=== PATIENT | male | born 1945 | race American Indian/Alaskan Native ===

== ENCOUNTER 2018-01-23 09:19 | Emergency (ER) | payer MEDICARE ==
[2018-01-23 09:40] VITALS: BP 174/71; PULSE 55; RESP 14; TEMP 97.7; O2SAT 97
--- NOTE | 2018-01-23 11:32 | C.PDOC ---
History Of Present Illness 72 y/o male presents to the ED complaining of occasional sharp left hip pain for 1 day. Pain is positionally reproducible, and radiates from the left lateral hip into the left groin. Patient states he walks 15-20 miles per day to keep active. He denies any numbness, tingling, focal weakness, trauma or fall. Time Seen by Provider: 01/23/18 09:49 Chief Complaint (Nursing): Back Pain History Per: Patient History/Exam Limitations: no limitations Onset/Duration Of Symptoms: Days Current Symptoms Are (Timing): Still Present Past Medical History Reviewed: Historical Data, Nursing Documentation, Vital Signs Vital Signs: Last Vital Signs Temp 97.7 F 01/23/18 09:37 Pulse 55 L 01/23/18 09:37 Resp 14 01/23/18 09:37 BP 174/71 H 01/23/18 09:37 Pulse Ox 97 01/23/18 12:05 - Medical History PMH: No Chronic Diseases Surgical History: No Surg Hx Family History: States: No Known Family Hx - Social History Hx Alcohol Use: Yes Hx Substance Use: No Review Of Systems Except As Marked, All Systems Reviewed And Found Negative. Cardiovascular: Negative for: Chest Pain Respiratory: Negative for: Shortness of Breath Musculoskeletal: Positive for: Leg Pain (left hip pain). Negative for: Other ( calf pain/swelling) Skin: Negative for: Rash Neurological: Negative for: Weakness, Numbness, Incoordination Physical Exam - Physical Exam Appears: Non-toxic, No Acute Distress, Other (Elderly white male) Skin: Normal Color, Warm, Dry Head: Atraumatic, Normacephalic Eye(s): bilateral: Normal Inspection Oral Mucosa: Moist Neck: Normal ROM Chest: Symmetrical Cardiovascular: Rhythm Regular, No Murmur Respiratory: Normal Breath Sounds, No Accessory Muscle Use Gastrointestinal/Abdominal: Soft, No Tenderness, No Distention Back: No Vertebral Tenderness, No Paraspinal Tenderness Extremity: No Tenderness, No Deformity, No Swelling, Other (Patient reports minor pain to the left hip with rotation of leg) Pulses: Left Dorsalis Pedis: Normal, Right Dorsalis Pedis: Normal Neurological/Psych: Oriented x3, Normal Speech ED Course And Treatment O2 Sat by Pulse Oximetry: 97 (RA) Pulse Ox Interpretation: Normal Medical Decision Making Medical Decision Making: Initial Plan: --Motrin 600 mg PO --X-ray LS spine --X-ray left hip/pelvis X-rays, viewed by me, show no acute fracture or bony abnormality. 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 [Outside] [facility] [Outside] [facility] [Outside] Marco Couch III, MD [Staff Provider] - Disposition: HOME/ ROUTINE Disposition Time: 11:32 Condition: GOOD Additional Instructions: continue motrin/advil 400-600 every 6 hours as needed Pepcid 20 mg @ night to help prevent stomach irritation from the Motrin/Advil Modified walking as able Follow-up with Dr. Couch- [facility]- or the Orthopedics Doctor of your choice. Call to make an appointment. Outpatient Family Practice Clinic as needed. Instructions: Arthritis and Exercise, Hip Pain in Older People Forms: [employer] (Turkmen) - Clinical Impression Clinical Impression: Pain in left hip - Scribe Statement The provider has reviewed the documentation as recorded by the Kiana Bah Provider Attestation: All medical record entries made by the Vanessaibgrazyna were at my direction and personally dictated by me. I have reviewed the chart and agree that the record accurately reflects my personal performance of the history, physical exam, medical decision making, and the department course for this patient. I have also personally directed, reviewed, and agree with the discharge instructions and disposition.
--- NOTE | 2018-01-23 13:28 | RAD ---
PROCEDURE: Left Hip X-ray Radiographs. HISTORY: L hip pain COMPARISON: None. FINDINGS: BONES: No acute fracture. JOINTS: Bilateral hip joint space narrowing. SOFT TISSUES: Normal. OTHER FINDINGS: None. IMPRESSION: No demonstrated fracture or dislocation. Bilateral hip degenerative changes.
--- NOTE | 2018-01-23 13:31 | RAD ---
Date of service: 01/23/2018 PROCEDURE: Radiographs of the Lumbar Spine. HISTORY: L lower back/hip pain COMPARISON: No prior. FINDINGS: BONES: Normal alignment. No listhesis. Mild age-indeterminate depression of the L3 superior endplate. DISC SPACES: Multilevel disc space narrowing with anterior endplate osteophytic changes, worst at L4-5. OTHER FINDINGS: None. IMPRESSION: Mild age-indeterminate depression of the L3 superior endplate for which acute fracture cannot be excluded. MRI of the lumbar spine can be obtained for further characterization of acuity as clinically warranted. ER notification submitted electronically.
== END 2018-01-23 12:17 | disposition home or self-care (01) ==
LOC: C.ER 09:19
DX: M25.552 Pain in left hip (principal)